=== PATIENT | female | born 1955 | race Caucasian/White ===

== ENCOUNTER → 2019-11-15 | Outpatient (CLI) | payer BC ==
[~2019-11-15] MED LIST: ADVIL LIQUI-GE200 MG PO; ASPIRIN 32325 MG/TAB PO; COLACE 100100 MG/CAP PO; NORCO 325 MG-51 TAB PO; PYRIDIUM 100MG100 MG PO; SOMA 350MG350 MG/TAB PO; TYLENOL 500MG500 MG PO; ZOFRAN 4MG T4 MG/TAB PO
== END ==
LOC: MC.RAD 11:18
DX: Z12.31 Encounter for screening mammogram for malignant neoplasm of breast (principal); Z01.419 Encounter for gynecological examination (general) (routine) without abnormal findings

== ENCOUNTER → 2021-06-19 | Outpatient (CLI) | payer BC | LOC: MC.RAD 15:16 | DX: Z12.31 Encounter for screening mammogram for malignant neoplasm of breast (principal); N64.89 Other specified disorders of breast ==

== ENCOUNTER → 2021-06-22 | Outpatient (CLI) | payer BC | LOC: MC.RAD 12:50 | DX: N64.89 Other specified disorders of breast (principal) ==

== ENCOUNTER → 2022-06-20 | Outpatient (CLI) | payer BC | LOC: MC.RAD 08:58 | DX: Z12.31 Encounter for screening mammogram for malignant neoplasm of breast (principal) ==